=== PATIENT | female | born 1955 | race Caucasian/White ===

== ENCOUNTER 2017-09-30 22:04 | Emergency (ER) | payer OTHER ==
[~2017-09-30] VITALS: Ht 170.2 cm; Wt 72.0 kg
[~2017-09-30 22:04] MED LIST: ALBU2TAB4 PO; ASPI1TAB69 PO; MULT1TAB84 PO; VISISOL2 EACH EYE; ZOLP10TA3 PO
[2017-09-30 22:05] VITALS: BP 135/84; PULSE 73; RESP 16; TEMP 98.3; O2SAT 98
[2017-09-30] MEDS ORDERED: ASPI-516 CHEW (22:27)
[2017-09-30] MEDS ORDERED: MULTTAB67 PO (22:27)
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
[2017-09-30] MEDS ORDERED: DICL75TA PO (22:50)
[2017-09-30] MEDS ORDERED: BACT800T5 PO (22:50)
[2017-09-30] MEDS ORDERED: SULFAMETHOXAZOLE-TRIMETHOPRIM DS 800-160 MG TAB PO ONE (23:00)
[2017-09-30] MEDS ORDERED: NAPROXEN 500 MG TAB PO ONE (23:00)
== END 2017-09-30 23:17 | disposition home or self-care (01) ==
LOC: NEPD 22:04
DX: S63.91XA Sprain of unspecified part of right wrist and hand, initial encounter (principal); X58.XXXA Exposure to other specified factors, initial encounter
CPT/HCPCS: 73130; 99283